=== PATIENT | male | born 1970 | race African-American/Black ===

== ENCOUNTER 2023-05-11 14:05 | Emergency (ER) | payer MEDICAID, OTHER ==
[~2023-05-11] VITALS: Ht 182.9 cm; Wt 100.0 kg
[~2023-05-11 14:05] MED LIST: ALBU8.5H3 IH
[2023-05-11 14:12] VITALS: TEMP 97.9
[2023-05-11 14:42] VITALS: BP 146/84; PULSE 84; RESP 16
[2023-05-11] MEDS ORDERED: PERM60CR19 TP (14:58)
[2023-05-11] MEDS ORDERED: PERMETHRIN 5% 60 GM CREAM TP ONE (15:00)
== END 2023-05-11 15:26 | disposition home or self-care (01) ==
LOC: EMS 14:08
DX: B85.1 Pediculosis due to Pediculus humanus corporis (principal); J45.909 Unspecified asthma, uncomplicated
CPT/HCPCS: 99282; Z7502; Z7610